=== PATIENT | female | born 1995 | race Two or more races ===

== ENCOUNTER 2018-06-27 21:31 | Emergency (ER) | payer BC ==
[~2018-06-27] VITALS: Ht 157.5 cm; Wt 81.6 kg
[2018-06-27] MEDS ORDERED: NKM (21:58)
[2018-06-27 22:00] VITALS: BP 138/91
--- NOTE | 2018-06-27 22:00 | NUR ---
ED Nurse Note: pt walked in c/o facial itchiness and difficulty breathing. pt stated she had allergic reaction after dinner. pt is able to breath with no abnormalities notes. air way is clear/ lung sounds are clear. pt is alert and oriented times 4. pt is sating at 99% on room air. pt complaints of R itchy eye, no abnormalities noted, no vision impairment, no visible abnormalites noted on R eye.
[2018-06-27] MEDS ORDERED: DiphenhydrAMINE 50mg/ml Inj IVP ONE (22:30)
[2018-06-27] MEDS ORDERED: Solu-MEDROL 125mg Inj IVP ONE (22:30)
[2018-06-27] MEDS ORDERED: PREDNISONE20 MG ORAL (23:33)
[2018-06-27] MEDS ORDERED: BENADRYL25 MG ORAL (23:33)
--- NOTE | 2018-06-27 23:34 | Emergency Room Report ---
History of Present Illness General Chief Complaint: Allergic Reaction Source: Patient Present Illness HPI Is a 22-year-old female with no past medical history. She presents with chief complaint allergic reaction. She ate a try to sandwich and then shortly afterward felt swelling to her eyes and swelling to her throat. No respiratory distress. She took 2 Benadryl and came here. Never had allergic reaction. She fell better now. The only thing different was a store bought salsa. No nausea no vomiting. No fever chills. Allergies: Coded Allergies: No Known Allergies (Unverified , 06/27/18) Patient History Past Medical History: none, see triage record, old chart reviewed Past Surgical History: none Pertinent Family History: none Social History: Denies: smoking Last Menstrual Period: jun Now: No Immunizations: other Reviewed Nursing Documentation: PMH: Agreed; PSxH: Agreed Nursing Documentation-PMH Past Medical History: No Stated History Review of Systems Eye: Denies: eye pain, blurred vision ENT: Denies: ear pain, nose congestion, throat swelling Respiratory: Denies: cough, shortness of breath Cardiovascular: Denies: chest pain, palpitations Gastrointestinal: Denies: abdominal pain, diarrhea, nausea, vomiting Musculoskeletal: Denies: back pain, joint pain Skin: Denies: rash Neurological: Denies: headache, numbness Endocrine: Denies: increased thirst, increased urine Hematologic/Lymphatic: Denies: easy bruising All Other Systems: negative except mentioned in HPI Physical Exam Vital Signs Date Time Temp Pulse Resp B/P (MAP) Pulse Ox O2 Delivery O2 Flow Rate FiO2 06/27/18 21:54 98.1 84 14 138/91 99 06/27/18 22:00 Room Air 06/27/18 22:00 99 vitals normal Sp02 EP Interpretation: reviewed, normal General Appearance: well appearing, no apparent distress, alert Head: normocephalic, atraumatic Eyes: bilateral eye PERRL, bilateral eye EOMI, bilateral eye other - Puffiness of both eyelids mostly right side. ENT: hearing grossly normal, normal pharynx Neck: full range of motion, supple, no meningismus Respiratory: chest non-tender, lungs clear, normal breath sounds Cardiovascular #1: regular rate, rhythm, no murmur Gastrointestinal: normal bowel sounds, non tender, no mass, no organomegaly, no bruit, non-distended Musculoskeletal: back normal, gait/station normal, normal range of motion Psychiatric: mood/affect normal Skin: warm/dry Medical Decision Making Diagnostic Impression: Primary Impression: Allergic reaction Qualified Codes: T78.40XA - Allergy, unspecified, initial encounter ER Course Patient presents with allergic reaction. No anaphylaxis. Better now. We'll discharge home. Told patient to get skin testing or blood testing for allergy. To her to get the ingredients for the salsa. Last Vital Signs Date Time Temp Pulse Resp B/P (MAP) Pulse Ox O2 Delivery O2 Flow Rate FiO2 06/27/18 22:00 84 14 Room Air 99 06/27/18 22:00 98.1 138/91 99 Status: improved Disposition: HOME, SELF-CARE Condition: Stable Scripts Prednisone* (PREDNISONE*) 20 Mg Tablet 40 MG ORAL DAILY, #6 TAB Prov: Esdras Barbosa MD 06/27/18 Diphenhydramine Hcl* (BENADRYL*) 25 Mg Capsule 50 MG ORAL Q6H PRN for Itching, #30 CAP Prov: Esdras Barbosa MD 06/27/18 Referrals: NOT CHOSEN [facility]/,REFERRING (PCP) Patient Instructions: Food Allergy Additional Instructions: Follow-up with your doctor in a week. You will need skin testing or blood testing for food allergy. Keep the ingredients label for the salsa. You may be allergic to one of this. Return of worse. Esdras Barbosa MD Jun 27, 2018 23:34
[2018-06-27 23:53] VITALS: BP 135/90
--- NOTE | 2018-06-27 23:55 | NUR ---
ED Nurse Note: PT is DC per ERMD order. pt is alert and oriented times 4. pt left with all belongings, DC notes and prescriptions. pt understood and is able to teach back DC notes and prescriptons. pt vital signs, status and condition is reported to ERMD prior to DC. pt vital signs, status and condition is stable for discharge. pt is instructed to report to primary MD as soon as possible. pt is instructed to return to ER as soon as possible if any variance in condition. pt is able to walk with steady gait. ID band removed.
== END 2018-06-27 23:55 | disposition home or self-care (01) ==
LOC: EMR 22:40
DX: T78.40XA Allergy, unspecified, initial encounter (principal); X58.XXXA Exposure to other specified factors, initial encounter; R60.0 Localized edema
CPT/HCPCS: 96374; 96375; 99284; J1200; J2405; J2930